=== PATIENT | female | born 1995 | race Caucasian/White ===

== ENCOUNTER 2017-10-29 16:38 | Emergency (ER) | payer OTHER ==
[~2017-10-29] VITALS: Ht 160 cm; Wt 61.3 kg
[~2017-10-29 16:38] MED LIST: DOCU-131 PO; IBUP-1223 PO; OXYC-302 PO
[2017-10-29 17:20] LABS: BASOPHILS # (AUTO) 0.04 x10^3/uL (0-0.1); BASOPHILS % (AUTO) 0 % (0-1); EOSINOPHILS # (AUTO) 0.37 x10^3/uL (0-0.4); EOSINOPHILS % (AUTO) 4 % (1-7); LYMPHOCYTES # (AUTO) 2.64 x10^3/uL (1-3.4); LYMPHOCYTES % (AUTO) 27 % (22-44); MD NO; MEAN CORPUSCULAR HEMOGLOBIN 29.9 pg (27.0-34.8); MEAN CORPUSCULAR HGB CONC 33.9 g/dL (32.4-35.8); MEAN CORPUSCULAR VOLUME 88.3 fL (80-100); MEAN PLATELET VOLUME 7.6 fL (7.4-10.4); MONOCYTES # (AUTO) 0.53 x10^3/uL (0.2-0.8); MONOCYTES % (AUTO) 6 % (2-9); NEUTROPHILS # (AUTO) 6.11 x10^3/uL (1.8-6.8); NEUTROPHILS % (AUTO) 63 % (42-75); PLATELET COUNT 258 x10^3/uL (130-400); RED BLOOD COUNT 5.11 x10^6/uL (3.82-5.3); RED CELL DISTRIBUTION WIDTH 13.2 % (9.6-15.2)
[2017-10-29 18:48] VITALS: BP 111/57
[2017-10-29] MEDS ORDERED: PREN1TAB60 PO (18:49)
== END 2017-10-29 19:27 | disposition home or self-care (01) ==
LOC: ED 19:25
DX: O03.4 Incomplete spontaneous abortion without complication (principal); Z3A.01 Less than 8 weeks gestation of pregnancy
CPT/HCPCS: 36415; 76801; 84702; 85025; 99285

== ENCOUNTER 2018-08-05 11:02 | Emergency (ER) | payer OTHER ==
[~2018-08-05] VITALS: Ht 162.6 cm; Wt 60.6 kg
[~2018-08-05 11:02] MED LIST changes: +PREN1TAB60 PO
[2018-08-05 11:28] VITALS: BP 118/57
[2018-08-05] MEDS ORDERED: ACETAMINOPHEN 325 MG TABLET ONE (11:43)
[2018-08-05] MEDS ORDERED: ACETAMINOPHEN 325 MG TABLET PO ONE (12:00)
== END 2018-08-05 12:05 | disposition home or self-care (01) ==
LOC: ED 11:55
DX: O26.892 Other specified pregnancy related conditions, second trimester (principal); M25.561 Pain in right knee; Z3A.15 15 weeks gestation of pregnancy
CPT/HCPCS: 99282; 99283

== ENCOUNTER 2018-08-16 12:28 | Emergency (ER) | payer OTHER ==
[~2018-08-16] VITALS: Ht 160 cm; Wt 61.0 kg
[2018-08-16 13:13] LABS: BASOPHILS # (AUTO) 0.12 x10^3/uL (0-0.1); BASOPHILS % (AUTO) 1 % (0-1); EOSINOPHILS # (AUTO) 0.29 x10^3/uL (0-0.4); EOSINOPHILS % (AUTO) 3 % (1-7); LYMPHOCYTES # (AUTO) 2.68 x10^3/uL (1-3.4); LYMPHOCYTES % (AUTO) 22 % (22-44); MD NO; MEAN CORPUSCULAR HEMOGLOBIN 31.2 pg (27.0-34.8); MEAN CORPUSCULAR HGB CONC 34.6 g/dL (32.4-35.8); MEAN CORPUSCULAR VOLUME 90.2 fL (80-100); MEAN PLATELET VOLUME 7.5 fL (7.4-10.4); MONOCYTES # (AUTO) 0.57 x10^3/uL (0.2-0.8); MONOCYTES % (AUTO) 5 % (2-9); NEUTROPHILS # (AUTO) 8.32 x10^3/uL (1.8-6.8); NEUTROPHILS % (AUTO) 69 % (42-75); PLATELET COUNT 280 x10^3/uL (130-400); RED BLOOD COUNT 4.06 x10^6/uL (3.82-5.3); RED CELL DISTRIBUTION WIDTH 13.3 % (9.6-15.2)
[2018-08-16 13:25] LABS: ALBUMIN 3.6 g/dL (3.4-5.0); ANION GAP 9 mmol/L (5-15); CALCIUM 9.2 mg/dL (8.5-10.1); CHLORIDE 105 mmol/L (98-107); CREATININE 0.45 mg/dL (0.55-1.02)
[2018-08-16 13:27] LABS: ALANINE AMINOTRANSFERASE 23 U/L (12-78); ALKALINE PHOSPHATASE 59 U/L (45-117); BILIRUBIN,TOTAL 0.2 mg/dL (0.2-1.0); TOTAL PROTEIN 7.4 g/dL (6.4-8.2)
[2018-08-16 13:36] LABS: MICROSCOPIC NOT IND
[2018-08-16 13:52] LABS: CULTURE INDICATED? NO
[2018-08-16 15:07] VITALS: BP 107/68
== END 2018-08-16 15:09 | disposition home or self-care (01) ==
LOC: ED 13:18
DX: O26.892 Other specified pregnancy related conditions, second trimester (principal); R10.33 Periumbilical pain; Z3A.17 17 weeks gestation of pregnancy
CPT/HCPCS: 36415; 76815; 80053; 81003; 85025; 93005; 99285

== ENCOUNTER 2018-10-09 13:52 | Emergency (ER) | payer OTHER ==
[~2018-10-09] VITALS: Ht 162.6 cm; Wt 65.5 kg
--- NOTE | 2018-10-09 14:45 | NUR ---
FIRST CONTACT WITH PT. PT C/O SUDDEN ONSET EPIGASTRIC CP, SOB, DIZZINESS, PALPITATION AFTER PT ATE LUNCH AT 12:30 TODAY. PT IS 25W . PT DENIES CP AT THIS TIME BUT PT STATES "CAN'T BREATH WELL STILL." PT DENIES VAGINAL DISCHARGE, BLEEDING, AND ABD CRAMPING AT THIS TIME. PT AOX4. RESPS EVEN AND UNLABORED. NEURO INTACT. EDMD AT BEDSIDE, EXPLAINING POC. ALL MONITORS IN PLACE. CALL LIGHT WITHIN REACH. AWAITING ORDERS.
[2018-10-09 15:09] LABS: BASOPHILS # (AUTO) 0.04 x10^3/uL (0-0.1); BASOPHILS % (AUTO) 0 % (0-1); EOSINOPHILS # (AUTO) 0.34 x10^3/uL (0-0.4); EOSINOPHILS % (AUTO) 3 % (1-7); LYMPHOCYTES # (AUTO) 2.33 x10^3/uL (1-3.4); LYMPHOCYTES % (AUTO) 19 % (22-44); MD NO; MEAN CORPUSCULAR HEMOGLOBIN 31.5 pg (27.0-34.8); MEAN CORPUSCULAR VOLUME 92.6 fL (80-100); MEAN PLATELET VOLUME 7.5 fL (7.4-10.4); MONOCYTES # (AUTO) 0.84 x10^3/uL (0.2-0.8); MONOCYTES % (AUTO) 7 % (2-9); NEUTROPHILS # (AUTO) 9.05 x10^3/uL (1.8-6.8); NEUTROPHILS % (AUTO) 72 % (42-75); PLATELET COUNT 217 x10^3/uL (130-400); RED BLOOD COUNT 3.73 x10^6/uL (3.82-5.3); RED CELL DISTRIBUTION WIDTH 12.9 % (9.6-15.2)
[2018-10-09 15:19] LABS: ANION GAP 7 mmol/L (5-15); CALCIUM 9.2 mg/dL (8.5-10.1); CHLORIDE 107 mmol/L (98-107)
--- NOTE | 2018-10-09 15:26 | NUR ---
preceptor note: Pt has was not seen by L&D dept prior to ED visit. Per EDMD, pt is to be seen by L&D RN for check during ED visit or after discharge from ED. This RN called L&D dept and spoke with L&D RN to notify.
[2018-10-09 15:30] VITALS: BP 105/58
--- NOTE | 2018-10-09 15:48 | NUR ---
PER L&D RN, PT IS TO HAVE CHECK AFTER DC'D FROM ED.
--- NOTE | 2018-10-09 16:00 | NUR ---
JAMILA KNIGHT NOTIFIED PT TO BE SEEN BY L&D RN S/P ED DC. PT RESTING ON GURNEY, RESPS EVEN AND UNLABORED. NO COMPLAINT AT THIS TIME. AWAITING DC PAPERWORK FROM ERP.
== END 2018-10-09 16:07 | disposition home or self-care (01) ==
LOC: ED 15:00
DX: O99.512 Diseases of the respiratory system complicating pregnancy, second trimester (principal); R06.00 Dyspnea, unspecified; O99.332 Smoking (tobacco) complicating pregnancy, second trimester; Z3A.25 25 weeks gestation of pregnancy
CPT/HCPCS: 36415; 71046; 80048; 82040; 85025; 93005; 99284; 99406

== ENCOUNTER 2018-12-05 20:32 | Emergency (ER) | payer OTHER ==
[~2018-12-05] VITALS: Ht 160 cm; Wt 70.3 kg
[2018-12-05 21:06] LABS: RAPID INFLUENZA A POSITIVE (Negative); RAPID INFLUENZA B Negative (Negative)
[2018-12-05 21:27] LABS: BASOPHILS # (AUTO) 0.02 x10^3/uL (0-0.1); BASOPHILS % (AUTO) 0 % (0-1); EOSINOPHILS # (AUTO) 0.11 x10^3/uL (0-0.4); EOSINOPHILS % (AUTO) 1 % (1-7); LYMPHOCYTES # (AUTO) 0.64 x10^3/uL (1-3.4); LYMPHOCYTES % (AUTO) 5 % (22-44); MD NO; MEAN CORPUSCULAR HEMOGLOBIN 31.9 pg (27.0-34.8); MEAN CORPUSCULAR HGB CONC 34.4 g/dL (32.4-35.8); MEAN CORPUSCULAR VOLUME 92.6 fL (80-100); MONOCYTES # (AUTO) 0.79 x10^3/uL (0.2-0.8); MONOCYTES % (AUTO) 7 % (2-9); NEUTROPHILS # (AUTO) 10.57 x10^3/uL (1.8-6.8); NEUTROPHILS % (AUTO) 87 % (42-75); PLATELET COUNT 126 x10^3/uL (130-400); RED BLOOD COUNT 3.43 x10^6/uL (3.82-5.3)
[2018-12-05 21:34] LABS: ANION GAP 8 mmol/L (5-15); CHLORIDE 108 mmol/L (98-107)
[2018-12-05 23:20] VITALS: BP 130/65
--- NOTE | 2018-12-05 23:43 | NUR ---
late entry, called L&D for fht, pt was said to have gone up to 2nd floor but sent down for med clearance, rn to come down.
--- NOTE | 2018-12-06 00:11 | NUR ---
PT STATES FHT ACCOMPLISHED AND L&D NURSE OKAYED THEM TO GO HOME. GIVEN D/C PAPERWORK. ALL QUESTIONS AND CONCERNS ADDRESSED AT THIS TIME. ALL BELONGINGS W/ PT UPON D/C.
== END 2018-12-06 00:13 | disposition home or self-care (01) ==
LOC: ED 12-06 00:07
DX: O26.893 Other specified pregnancy related conditions, third trimester (principal); J10.1 Influenza due to other identified influenza virus with other respiratory manifestations; R07.89 Other chest pain; Z3A.33 33 weeks gestation of pregnancy
CPT/HCPCS: 36415; 71045; 80048; 82040; 85025; 87400; 93005; 99284

== ENCOUNTER 2019-01-18 05:40 | Inpatient (IN) | payer OTHER ==
[~2019-01-18] VITALS: Ht 160 cm; Wt 71.8 kg
[2019-01-18] MEDS ORDERED: LACTATED RINGERS 1,000 ML IV SCH ×2 (05:42→08:50)
[2019-01-18] MEDS ORDERED: SODIUM CITRATE/CITRIC ACID 15 ML UDC ONE (05:48)
[2019-01-18] MEDS ORDERED: NEWBORN KIT ONE (05:48)
[2019-01-18] MEDS ORDERED: OXYTOCIN 30U/ 0.9% NaCL 500ML 500 ML ONE (05:48)
[2019-01-18] MEDS ORDERED: METOCLOPRAMIDE 5 MG/ML, 2ML ONE (05:48)
[2019-01-18] MEDS ORDERED: LACTATED RINGERS 1,000 ML IVBOLUS ONE (06:00)
[2019-01-18] MEDS ORDERED: METOCLOPRAMIDE 5 MG/ML, 2ML IV ONE (06:00)
[2019-01-18] MEDS ORDERED: SODIUM CITRATE/CITRIC ACID 15 ML UDC PO ONE (06:00)
[2019-01-18 06:14] VITALS: BP 117/70
[2019-01-18 06:48] LABS: BASOPHILS # (AUTO) 0.05 x10^3/uL (0-0.1); BASOPHILS % (AUTO) 0 % (0-1); EOSINOPHILS # (AUTO) 0.27 x10^3/uL (0-0.4); EOSINOPHILS % (AUTO) 2 % (1-7); LYMPHOCYTES # (AUTO) 2.45 x10^3/uL (1-3.4); LYMPHOCYTES % (AUTO) 19 % (22-44); MD NO; MEAN CORPUSCULAR HEMOGLOBIN 32.2 pg (27.0-34.8); MEAN CORPUSCULAR HGB CONC 34.7 g/dL (32.4-35.8); MEAN CORPUSCULAR VOLUME 92.7 fL (80-100); MEAN PLATELET VOLUME 8.5 fL (7.4-10.4); MONOCYTES # (AUTO) 0.79 x10^3/uL (0.2-0.8); MONOCYTES % (AUTO) 6 % (2-9); NEUTROPHILS # (AUTO) 9.36 x10^3/uL (1.8-6.8); NEUTROPHILS % (AUTO) 73 % (42-75); PLATELET COUNT 179 x10^3/uL (130-400); RED BLOOD COUNT 3.81 x10^6/uL (3.82-5.3); RED CELL DISTRIBUTION WIDTH 13.8 % (9.6-15.2)
[2019-01-18] MEDS ORDERED: morphine SULFATE/PF 0.5 MG/ML, 10ML ONE (07:17)
[2019-01-18] MEDS ORDERED: OXYTOCIN 10 UNITS/ML, 1ML ONE (07:25)
[2019-01-18] MEDS ORDERED: PHENYLEPHRINE 10 MG/ML ONE (07:25)
[2019-01-18] MEDS ORDERED: EPHEDRINE 50 MG/ML, 1ML ONE (07:25)
[2019-01-18] MEDS ORDERED: WATER-INJECTION,STERILE 10 ML IV ONE (07:25)
[2019-01-18] MEDS ORDERED: CEFAZOLIN 1,000 MG ONE (07:25)
[2019-01-18] MEDS ORDERED: ONDANSETRON 2MG/ML, 2ML ONE (07:25)
[2019-01-18] MEDS ORDERED: MIDAZOLAM 1 MG/ML, 2ML ONE (08:24)
[2019-01-18] MEDS: LACTATED RINGERS 1,000 ML IV SCH ×2 (08:50→16:50)
[2019-01-18] MEDS ORDERED: FENTANYL PF 100 MCG/2ML ONE (08:52)
[2019-01-18] MEDS ORDERED: OXYcodone/APAP 5/325MG TABLET PO PRN ×2 (09:00)
[2019-01-18] MEDS ORDERED: FENTANYL PF 100 MCG/2ML IV ONE (09:00)
[2019-01-18] MEDS ORDERED: MEPERIDINE/PF 50 MG/ML IVPush PRN (09:00)
[2019-01-18] MEDS ORDERED: MORPHINE SULFATE 4 MG/ML, 1ML IVPush PRN (09:00)
[2019-01-18] MEDS ORDERED: ONDANSETRON 2MG/ML, 2ML IV PRN (09:00)
[2019-01-18] MEDS: PRENATAL VIT/IRON/FA 1 EACH TABLET PO SCH (09:00)
[2019-01-18] MEDS ORDERED: ACETAMINOPHEN 325 MG TABLET PO PRN (09:00)
[2019-01-18] MEDS ORDERED: MISOPROSTOL 200 MCG TABLET PR PRN (09:00)
[2019-01-18] MEDS ORDERED: METHYLERGONOVINE 0.2 MG/ML IM PRN (09:00)
[2019-01-18] MEDS ORDERED: morphine SULFATE 10 MG/ML, 1ML IVPush PRN (09:00)
[2019-01-18] MEDS ORDERED: MEPERIDINE/PF 100 MG/ML IVPush PRN (09:00)
[2019-01-18] MEDS ORDERED: IBUPROFEN 600 MG TABLET PO PRN (09:00)
[2019-01-18] MEDS ORDERED: OXYcodone 5 MG/5 ML ORAL.SOL UDC ONE (09:24)
[2019-01-18] MEDS ORDERED: OXYcodone 5 MG/5 ML ORAL.SOL UDC PO PRN (09:30)
[2019-01-18] MEDS: OXYTOCIN 30U/ 0.9% NaCL 500ML 500 ML IV SCH ×2 (09:44→18:50)
[2019-01-18 11:51] VITALS: BP 107/64
[2019-01-18] MEDS ORDERED: DIPHENHYDRAMINE 25 MG CAPSULE PO PRN (14:30)
[2019-01-18] MEDS: KETOROLAC 30 MG/1 ML IV SCH ×2 (14:40→20:39)
[2019-01-18 16:10] VITALS: BP 108/64
[2019-01-18 17:00] LABS: BASOPHILS # (AUTO) 0.04 x10^3/uL (0-0.1); BASOPHILS % (AUTO) 0 % (0-1); EOSINOPHILS # (AUTO) 0.15 x10^3/uL (0-0.4); EOSINOPHILS % (AUTO) 1 % (1-7); LYMPHOCYTES # (AUTO) 2.11 x10^3/uL (1-3.4); LYMPHOCYTES % (AUTO) 16 % (22-44); MD NO; MEAN CORPUSCULAR HEMOGLOBIN 31.3 pg (27.0-34.8); MEAN CORPUSCULAR HGB CONC 33.3 g/dL (32.4-35.8); MONOCYTES # (AUTO) 0.87 x10^3/uL (0.2-0.8); MONOCYTES % (AUTO) 7 % (2-9); NEUTROPHILS # (AUTO) 10.33 x10^3/uL (1.8-6.8); NEUTROPHILS % (AUTO) 77 % (42-75); PLATELET COUNT 148 x10^3/uL (130-400); RED BLOOD COUNT 3.22 x10^6/uL (3.82-5.3); RED CELL DISTRIBUTION WIDTH 13.9 % (9.6-15.2)
[2019-01-18 19:30] VITALS: BP 106/59
[2019-01-18] MEDS: DOCUSATE 100 MG CAPSULE PO PRN (20:39)
[2019-01-19] MEDS: LACTATED RINGERS 1,000 ML IV SCH ×3 (00:50→16:50)
[2019-01-19 01:00] VITALS: BP 94/49
[2019-01-19] MEDS: KETOROLAC 30 MG/1 ML IV SCH ×4 (02:36→21:40)
[2019-01-19 03:40] VITALS: BP 100/58
[2019-01-19] MEDS: OXYTOCIN 30U/ 0.9% NaCL 500ML 500 ML IV SCH ×2 (04:50→14:50)
[2019-01-19] MEDS: DOCUSATE 100 MG CAPSULE PO PRN ×2 (09:20→21:40)
[2019-01-19] MEDS: PRENATAL VIT/IRON/FA 1 EACH TABLET PO SCH (09:20)
[2019-01-19 20:00] VITALS: BP 109/91
[2019-01-20] MEDS: OXYTOCIN 30U/ 0.9% NaCL 500ML 500 ML IV SCH ×2 (00:50→09:09)
[2019-01-20] MEDS: LACTATED RINGERS 1,000 ML IV SCH ×2 (00:50→08:10)
[2019-01-20] MEDS: KETOROLAC 30 MG/1 ML IV SCH ×2 (03:26→09:08)
[2019-01-20 08:00] VITALS: BP 106/66
[2019-01-20] MEDS ORDERED: KETOROLAC 30 MG/1 ML ONE (09:02)
[2019-01-20] MEDS: DOCUSATE 100 MG CAPSULE PO PRN (09:09)
[2019-01-20] MEDS: PRENATAL VIT/IRON/FA 1 EACH TABLET PO SCH (09:09)
[2019-01-20] MEDS ORDERED: IBUP-1222 PO (10:10)
[2019-01-20] MEDS ORDERED: OXYC-302 PO (10:10)
== END 2019-01-20 12:20 | disposition home or self-care (01) | DRG 788 ==
LOC: LDIP 05:40 → 2NW 11:05
PROVIDERS: ADMIT Obstetrics & Gynecology; ATTEND Obstetrics & Gynecology
PROC: 10D00Z1 Extraction of Products of Conception, Low, Open Approach (ICD-10-PCS; principal; 2019-01-18)
DX: O69.81X0 Labor and delivery complicated by cord around neck, without compression, not applicable or unspecified (principal); O34.211 Maternal care for low transverse scar from previous cesarean delivery; Z87.891 Personal history of nicotine dependence; Z3A.39 39 weeks gestation of pregnancy; Z37.0 Single live birth
CPT/HCPCS: 36415; 85025; 86850; 86900; G0378; J0690; J1885; J2250; J2274; J2405; J3010; J2370; J2590; J2765; J7120; Q0163

== ENCOUNTER 2020-04-01 11:40 | Emergency (ER) | payer OTHER ==
[~2020-04-01] VITALS: Ht 160 cm; Wt 64.4 kg
[~2020-04-01 11:40] MED LIST changes: +IBUP-1222 PO
[2020-04-01 11:47] VITALS: BP 122/78
--- NOTE | 2020-04-01 12:16 | NUR ---
pt to rm from lobby
--- NOTE | 2020-04-01 13:00 | NUR ---
EVAN RN: URINE COLLECTED AND SENT TO LAB. PT IN US.
[2020-04-01 13:27] LABS: MICROSCOPIC NOT IND
[2020-04-01 14:03] LABS: BASOPHILS # (AUTO) 0.04 x10^3/uL (0-0.1); BASOPHILS % (AUTO) 1 % (0-1); EOSINOPHILS # (AUTO) 0.28 x10^3/uL (0-0.4); EOSINOPHILS % (AUTO) 4 % (1-7); LYMPHOCYTES # (AUTO) 2.31 x10^3/uL (1-3.4); LYMPHOCYTES % (AUTO) 32 % (22-44); MD NO; MEAN CORPUSCULAR HEMOGLOBIN 30.3 pg (27.0-34.8); MEAN PLATELET VOLUME 7.7 fL (7.4-10.4); MONOCYTES # (AUTO) 0.41 x10^3/uL (0.2-0.8); MONOCYTES % (AUTO) 6 % (2-9); NEUTROPHILS # (AUTO) 4.08 x10^3/uL (1.8-6.8); NEUTROPHILS % (AUTO) 57 % (42-75); PLATELET COUNT 229 x10^3/uL (130-400); RED BLOOD COUNT 4.94 x10^6/uL (3.82-5.3); RED CELL DISTRIBUTION WIDTH 12.6 % (9.6-15.2)
[2020-04-01 14:10] LABS: ALANINE AMINOTRANSFERASE 25 U/L (12-78); ALBUMIN 3.6 g/dL (3.4-5.0); CALCIUM 8.9 mg/dL (8.5-10.1); CHLORIDE 111 mmol/L (98-107); CREATININE 0.64 mg/dL (0.55-1.02)
[2020-04-01 14:15] LABS: ALKALINE PHOSPHATASE 79 U/L (45-117); ANION GAP 6 mmol/L (5-15); BILIRUBIN,TOTAL 0.3 mg/dL (0.2-1.0); TOTAL PROTEIN 6.9 g/dL (6.4-8.2)
== END 2020-04-01 15:04 | disposition home or self-care (01) ==
LOC: ED 14:50
DX: N83.292 Other ovarian cyst, left side (principal); R10.84 Generalized abdominal pain
CPT/HCPCS: 36415; 74021; 76700; 76830; 80053; 81003; 83690; 84703; 85025; 99285